=== PATIENT | female | born 1955 | race Caucasian/White ===

== ENCOUNTER 2024-01-24 09:33 | Emergency (ER) | payer SELFPAY ==
[2024-01-24 09:34] VITALS: BP 136/82
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
[2024-01-24] MEDS: ROXICODONE 5 MG PO (10:05)
[2024-01-24] MEDS: ANTIVERT 25 MG PO (10:05)
[2024-01-24] MEDS: AUGMENTIN 875 MG/125 MG 1 TABLET PO (10:05)
== END 2024-01-24 11:37 | disposition home or self-care (01) ==
LOC: EMR 09:33
PROVIDERS: EMERGENCY PHYSICIAN Student in an Organized Health Care Education/Training Program
DX: F07.81 Postconcussional syndrome (principal); S51.012A Laceration without foreign body of left elbow, initial encounter; R42 Dizziness and giddiness; W18.30XA Fall on same level, unspecified, initial encounter; R03.0 Elevated blood-pressure reading, without diagnosis of hypertension
CPT/HCPCS: 99283; 12002; 73080

== ENCOUNTER 2024-01-31 10:01 | Emergency (ER) | payer SELFPAY ==
[2024-01-31 10:11] VITALS: BP 102/81
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
[2024-01-31] MEDS: ANTIVERT 25 MG PO (11:07)
[2024-01-31] MEDS: NSS 1000 IV (11:07)
[2024-01-31 11:12] LABS: % Basophils 0.5 % (0-2); % Eosinophils 1.4 % (0-6); % Immature Granulocytes 0.6 % (0-0.5); % Lymphocytes 5.8 % (20.5-51.1); % Monocytes 11.8 % (1.7-9.3); % Neutrophils 79.9 % (42.2-75.2); Absolute Eosinophils 0.1 10^3/uL (0-0.7); Absolute Immature Granulocytes 0.1 10^3/uL (0-0.05); Absolute Lymphocytes 0.5 10^3/uL (1.2-3.4); Absolute Neutrophils 6.7 10^3/uL (1.4-6.5); Hematocrit 36.1 % (37.0-47.0); Hemoglobin 12.6 g/dL (12.0-16.0); Mean Corp Hgb Conc. 34.9 g/dL (33.0-37.0); Mean Corpuscular Volume 94.5 fL (81.0-99.0); Mean Platelet Volume 9.4 fL (7.4-10.4); Nucleated Red Blood Cells % 0 %; Platelet Count 200 10^3/uL (130-400); Red Blood Cell Count 3.82 10^6/uL (4.20-5.40); Red Cell Dist. Width 13.6 % (11.5-14.5); White Blood Cell Count 8.4 10^3/uL (4.8-10.8)
[2024-01-31 11:24] LABS: ALT (SGPT) 29 U/L (0-35); AST (SGOT) 41 U/L (14-36); Albumin 4.5 g/dl (3.5-5.0); Alkaline Phosphatase 70 U/L (38-126); Blood Urea Nitrogen 15 mg/dl (7-17); Calcium 9.7 mg/dl (8.4-10.2); Carbon Dioxide 26 mmol/L (22-30); Chloride 103 mmol/L (98-107); Glucose 115 mg/dl (70-99); Potassium 4.1 mmol/L (3.5-5.1); Sodium 137 mmol/L (135-145); Total Bilirubin 0.5 mg/dl (0.2-1.3); eGFR > 60.00
[2024-01-31 11:36] LABS: Troponin I < 0.012 ng/ml
[2024-01-31 11:54] VITALS: BP 136/68
[2024-01-31 13:00] VITALS: BP 144/77
[2024-01-31] MEDS: TYLENOL 1000 MG PO (13:33)
[2024-01-31 14:00] VITALS: BP 146/80
--- NOTE | 2024-01-31 14:04 | CM ---
Addendum entered by Corry Benites RN 01/31/24 14:13:
CM was updated by patient's ED PA. Pending full read of CT results.
Original Note:
CM reviewed medical records. Patient lives in [place] and is currently visiting at the following address with her family. Patient would be agreeable to home care and home PT. CM updated bedside RN and ED PA.
Patient's address:
[address] [place] [address]
[place]
CM further confirmed that patient has Medicare in addition to the auto insurance.
[2024-01-31] MEDS: TORADOL 15 MG IV (14:07)
[2024-01-31] MEDS: MAGNESIUM SULFATE 100 IV (14:19)
[2024-01-31 15:00] VITALS: BP 127/69
--- NOTE | 2024-01-31 15:05 | CM ---
Addendum entered by Corry Benites RN 01/31/24 15:57:
Patient has been declined for home care due to having a out of state PCP. Patient will be written for outpatient PT/OT. CM provided script to bedside RN and updated patient and .
Original Note:
Patient is medically ready for discharge. CM attempting to confirm if a [facility] can accept orders from a out of state physician for home care.
== END 2024-01-31 16:19 | disposition home or self-care (01) ==
LOC: EMR 10:01
PROVIDERS: Physician Assistant; EMERGENCY PHYSICIAN Emergency Medicine
DX: R55 Syncope and collapse (principal); I77.74 Dissection of vertebral artery; R42 Dizziness and giddiness; R51.9 Headache, unspecified; R53.83 Other fatigue; V49.50XA Passenger injured in collision with unspecified motor vehicles in traffic accident, initial encounter; Y92.410 Unspecified street and highway as the place of occurrence of the external cause; W19.XXXA Unspecified fall, initial encounter; I10 Essential (primary) hypertension; E78.5 Hyperlipidemia, unspecified; G40.909 Epilepsy, unspecified, not intractable, without status epilepticus; Z88.8 Allergy status to other drugs, medicaments and biological substances
CPT/HCPCS: 99285; 96374; 96375; 96361; 70450; 70498; 80053; 84484; 85025; 93005; Q9967